=== PATIENT | female | born 1970 | race Caucasian/White ===

== ENCOUNTER 2018-03-10 12:44 | Observation (INO) | payer OTHER ==
[2018-03-10 13:18] LABS: HCG,QUALITATIVE URINE NEGATIVE
[2018-03-10 13:19] LABS: URINE APPEARANCE Clear; URINE BILIRUBIN Negative (NEGATIVE); URINE GLUCOSE (UA) Negative (NEGATIVE); URINE KETONE Negative (NEGATIVE); URINE LEUK ESTERASE Negative (NEGATIVE); URINE NITRITE Negative (NEGATIVE); URINE PROTEIN Negative (NEGATIVE); URINE UROBILINOGEN 0.2 (0.2-1.0)
[2018-03-10] MEDS ORDERED: SODIUM CHLORIDE 1,000 ML IV STA (13:21)
--- NOTE | 2018-03-10 13:21 | PDOC ---
History of Present Illness - General Chief Complaint: Lightheaded Stated Complaint: LIGHTHEADED Time Seen by Provider: 03/10/18 12:47 History Source: Patient Exam Limitations: No Limitations - History of Present Illness Initial Comments: 03/10/18 13:07 48 year old female c/ hx HTN, +heavy smoking history, anxiety/depression p/w lightheaded and chest discomfort. For the last several weeks, the patient has been endorsing worsening exercise tolerance and generalized weakness. Two days ago, pt was working as a [employer], suddenly felt lightheaded, generally weak, and nauseous but no chest pain. [place] like sitting and standing up made symptoms worse. States she felt generally fatigue. Today, she woke up with midsternal chest discomfort that is constant, 2/10. No SOB or radiation. States she feels nauseous. No diaphoresis. No fevers or chills. Reports poor appetite. Denies abdominal pain. Past History - Past Medical History Allergies/Adverse Reactions: Allergies Allergy/AdvReac Type Severity Reaction Status Date / Time ciprofloxacin [From Cipro] Allergy Verified 03/10/18 12:53 ciprofloxacin HCl Allergy Verified 03/10/18 12:53 [From Cipro] Penicillins Allergy Verified 03/10/18 12:53 Home Medications: Ambulatory Orders Levothyroxine [Synthroid -] 75 mcg PO DAILY 02/21/16 Liothyronine Sodium [Cytomel] 50 mcg PO DAILY 02/21/16 Lorazepam [Ativan] 0.5 mg PO HS 02/21/16 Sertraline HCl [Zoloft] 125 mg PO DAILY 03/10/18 COPD: No HTN: Yes Psychiatric Problems: Yes (ANXIETY, DEPRESSION ,PTSD) Thyroid Disease: Yes - Suicide/Smoking/Psychosocial Hx Smoking History: Current every day smoker Have you smoked in the past 12 months: Yes Number of Cigarettes Smoked Daily: 15 Information on smoking cessation initiated: Yes 'Breaking Loose' booklet given: 02/21/16 Hx Alcohol Use: No Drug/Substance Use Hx: No Substance Use Type: None Review of Systems - Review of Systems Able to Perform ROS?: Yes Comments:: 03/10/18 13:27 GENERAL/CONSTITUTIONAL: No fever, weakness. HEAD, EYES, EARS, NOSE AND THROAT: No change in vision. No ear pain or discharge. No sore throat. CARDIOVASCULAR: +chest pain. No shortness of breath. RESPIRATORY: No cough, wheezing, or hemoptysis. GASTROINTESTINAL: No abdominal pain, nausea, vomiting, diarrhea, or decreased PO intolerance. GENITOURINARY: No dysuria, frequency, or change in urination. MUSCULOSKELETAL: No joint or muscle swelling or pain. No neck or back pain. SKIN: No rash NEUROLOGIC: No headache, vertigo, loss of consciousness, or change in strength/ sensation. + lightheadedness ENDOCRINE: No increased thirst. No abnormal weight change. HEMATOLOGIC/LYMPHATIC: No anemia, easy bleeding, or history of blood clots. ALLERGIC/IMMUNOLOGIC: No hives or skin allergy. *Physical Exam - Vital Signs Last Vital Signs Temp Pulse Resp BP Pulse Ox 98.5 F 80 16 136/84 100 03/10/18 12:45 03/10/18 12:45 03/10/18 12:45 03/10/18 12:45 03/10/18 12:45 - Physical Exam Comments: 03/10/18 13:27 GENERAL: Awake, alert, and fully oriented, in no acute distress. HEAD: No signs of trauma EYES: PERRLA, EOMI, sclera anicteric, conjunctiva clear ENT: Auricles normal inspection, hearing grossly normal, nares patent NECK: Normal ROM, supple LUNGS: Breath sounds equal, clear to auscultation bilaterally. No wheezes, and no crackles HEART: Regular rate and rhythm, normal S1 and S2, no murmurs, rubs or gallops ABDOMEN: Soft, nontender No guarding, no rebound. No masses EXTREMITIES: Normal range of motion, no edema. No clubbing or cyanosis. No cords, erythema, or tenderness NEUROLOGICAL: Cranial nerves II through XII grossly intact. Normal speech, normal gait SKIN: Warm, Dry, normal turgor, no rashes or lesions noted. Heart Score/ECG Review - History History: Highly suspicious - Electrocardiogram EKG: Significant ST-depression - Age Age: </= 45 - Risk Factors Risk Factors Heart Score: Yes Hx Hypertension, Yes Smoking History, Yes Hx Obesity Based on the list above the patient has:: >/=3 risk factors or Hx atherosclerotic disease - Troponin Troponin: </= normal limit - Score Heart Score - Total: 6 #1 ECG reviewed & interpreted by me at: 12:50 03/10/18 13:29 NSR 72, 1mm STD V3-V5 but no THIERRY, normal axis, normal intervals, QTC 459 msec ED Treatment Course - LABORATORY CBC & Chemistry Diagram: 03/10/18 13:15 03/10/18 13:15 - RADIOLOGY Radiology Studies Ordered: Category Date Time Status CHEST PA & LAT [RAD] Stat Radiology 03/10/18 13:06 Ordered Medical Decision Making - Medical Decision Making 03/10/18 13:29 Vital Signs Temp Pulse Resp BP Pulse Ox 98.5 F 80 16 136/84 100 03/10/18 12:45 03/10/18 12:45 03/10/18 12:45 03/10/18 12:45 03/10/18 12:45 48 year old female with lightheaded and chest pain with ST depression ECG. This is concerning for NSTEMI / acute coronary syndrome. Will give the patient aspirin. Send troponin, chest xray, labs, consult cardiology, admit. 03/10/18 14:18 CBC, BMP 03/10/18 13:15 03/10/18 13:15 CMP Sodium 133 mmol/L (136-145) L 03/10/18 13:15 Potassium 3.4 mmol/L (3.5-5.1) L 03/10/18 13:15 Chloride 101 mmol/L (98-107) 03/10/18 13:15 Carbon Dioxide 21 mmol/L (22-28) L 03/10/18 13:15 Anion Gap 11 (8-16) 03/10/18 13:15 BUN 11 mg/dl (7-18) 03/10/18 13:15 Creatinine 0.7 mg/dl (0.6-1.3) 03/10/18 13:15 Creat Clearance w eGFR > 60 (>60) 03/10/18 13:15 Random Glucose 87 mg/dl (74-106) 03/10/18 13:15 Calcium 9.3 mg/dl (8.4-10.2) 03/10/18 13:15 Total Bilirubin 0.8 mg/dl (0.2-1.0) 03/10/18 13:15 AST 18 U/L (10-42) 03/10/18 13:15 ALT 15 U/L (10-40) 03/10/18 13:15 Alkaline Phosphatase 55 U/L (32-92) 03/10/18 13:15 Troponin I < 0.03 ng/ml (0.00-0.06) 03/10/18 13:15 Total Protein 7.3 g/dl (6.4-8.3) 03/10/18 13:15 Albumin 4.3 g/dl (3.5-5.0) 03/10/18 13:15 Initial troponin is negative. Case discussed with Dr. Lowe. He will follow patient as medical economics consultant. Will admit patient to the hospital. 03/10/18 14:28 Chest xray reviewed. No acute findings. Case discussed with [facility] hospitalist. Pt admitted to telemetry observation. Case discussed in detail with admitting physician including history, physical exam and ancillary studies. Admitting physician has assumed care for the patient, will follow all pending diagnostics and will complete the evaluation and treatment. *DC/Admit/Observation/Transfer Diagnosis at time of Disposition: Chest pain Qualifiers: Chest pain type: unspecified Qualified Code(s): R07.9 - Chest pain, unspecified - Discharge Dispostion Condition at time of disposition: Stable Admit: Yes - Referrals - Patient Instructions - Post Discharge Activity
[2018-03-10] MEDS ORDERED: ASPIRIN 81 MG CHEWABLE TABLETS PO ONE (13:30)
[2018-03-10 13:32] LABS: BASO % 1.3 % (0-2.0); EOS % 1.1 % (0-4.5); HEMATOCRIT 42.9 % (32.4-45.2); HEMOGLOBIN 14.6 GM/dl (10.7-15.3); LYMPH % 26.9 % (8-40); MEAN CELL VOLUME 88.3 fl (80-96); MEAN PLT VOLUME 8.4 fl (7.5-11.1); MONO % 5.7 % (3.8-10.2); PLATELET COUNT 232 K/MM3 (134-434); RBC 4.86 M/mm3 (3.60-5.2); RDW 11.9 % (11.6-15.6); WHITE BLOOD COUNT 7.5 K/mm3 (4.0-10.8)
[2018-03-10] MEDS ORDERED: ASPIRIN 325 MG TABLET ONE ×2 (13:33→13:34)
[2018-03-10 13:47] LABS: ALBUMIN 4.3 g/dl (3.5-5.0); ALK PHOS 55 U/L (32-92); ANION GAP 11 (8-16); BILIRUBIN,TOTAL 0.8 mg/dl (0.2-1.0); BLOOD UREA NITROGEN 11 mg/dl (7-18); CALCIUM 9.3 mg/dl (8.4-10.2); CHLORIDE 101 mmol/L (98-107); CO2 21 mmol/L (22-28); CREATININE 0.7 mg/dl (0.6-1.3); GLUCOSE,RANDOM 87 mg/dl (74-106); POTASSIUM 3.4 mmol/L (3.5-5.1); SGOT/AST 18 U/L (10-42); SGPT/ALT 15 U/L (10-40); SODIUM 133 mmol/L (136-145); TOT PROT 7.3 g/dl (6.4-8.3)
[2018-03-10 13:49] LABS: URINE COLOR YELLOW
[2018-03-10 13:49] LABS: ACTIVATED PTT 28.8 SECONDS (24.0-38.9)
[2018-03-10 13:53] LABS: INR 1.12 (0.82-1.09); PROTHROMBIN TIME (PATIENT) 12.5 SEC (10.2-13.0)
[2018-03-10] MEDS ORDERED: LORazepam 0.5 MG TABLET PO ONE ×2 (14:13→18:32)
[2018-03-10] MEDS ORDERED: LORazepam 0.5 MG TABLET ONE (14:46)
[2018-03-10] MEDS ORDERED: POTASSIUM CHLORIDE TABS 20 MEQ TABLET.ER (FP) PO ONE ×2 (15:00)
[2018-03-10] MEDS ORDERED: NICOTINE 21 MG/24 HOURS TOPICAL PATCH TD SCH (16:00)
[2018-03-10 16:16] VITALS: BMI 29.5
[2018-03-10] MEDS: NICOTINE 7 MG/24 HOURS TOPICAL PATCH TD SCH (18:04)
[2018-03-10] MEDS ORDERED: LORazepam 0.5 MG TABLET PO SCH (22:00)
--- NOTE | 2018-03-10 22:05 | HP ---
CHIEF COMPLAINT: chest pain PCP: Vanessa Morrow HISTORY OF PRESENT ILLNESS: This is a 48yF with a significant past medical history of HTN, Anxiety who prsented to the ED with episode chest discomfort that started shortly after awakening this am. She also reports a several day history of lightheadedness to the point where she felt as if she had to hold onto something to avoid passing out. She also c/o decreased exercise tolerance and extreme fatigue over the past few weeks but especially last week. She denies palpitations, abdominal pain , N/V. ER course was notable for: (1) Trop neg (2) TWI lead 3, STD V3-V6 Recent Travel: pt denies PAST MEDICAL HISTORY: HTN, anxiety/depression, PTSD, hypothyroid, R breast mass pending workup PAST SURGICAL HISTORY: L breast lumpectomy - benign Social History: Smoking: pt denies Alcohol: pt denies Drugs: pt denies Family History: mother alive with Parkinson's disease and dementia father age 81, CAD, stent in his 70s, PAD brother , suicide, h/o bipolar and borderline personality disorder sister alive and well Allergies ciprofloxacin [From Cipro] Allergy (Verified 03/10/18 12:53) ciprofloxacin HCl [From Cipro] Allergy (Verified 03/10/18 12:53) Penicillins Allergy (Verified 03/10/18 12:53) HOME MEDICATIONS: 3 Medication Instructions Recorded Levothyroxine [Synthroid -] 75 mcg PO DAILY 02/21/16 Liothyronine Sodium [Cytomel] 50 mcg PO DAILY 02/21/16 Lorazepam [Ativan] 0.5 mg PO HS 02/21/16 Brexpiprazole [Rexulti] 1 mg PO DAILY 03/10/18 Sertraline HCl [Zoloft] 125 mg PO DAILY 03/10/18 Triamterene/Hydrochlorothiazid 1 each PO DAILY 03/10/18 [Triamterene-Hctz 37.5-25 mg Tb] REVIEW OF SYSTEMS CONSTITUTIONAL: Absent: fever, chills, diaphoresis, generalized weakness, malaise, loss of appetite, weight change HEENT: Absent: rhinorrhea, nasal congestion, throat pain, throat swelling, difficulty swallowing, mouth swelling, ear pain, eye pain, visual changes CARDIOVASCULAR: Present: chest pain, lightheadedness Absent: syncope, palpitations, irregular heart rate, peripheral edema RESPIRATORY: Absent: cough, shortness of breath, dyspnea with exertion, orthopnea, wheezing, stridor, hemoptysis GASTROINTESTINAL: Absent: abdominal pain, abdominal distension, nausea, vomiting, diarrhea, constipation, melena, hematochezia GENITOURINARY: Absent: dysuria, frequency, urgency, hesitancy, hematuria, flank pain, genital pain MUSCULOSKELETAL: Absent: myalgia, arthralgia, joint swelling, back pain, neck pain SKIN: Absent: rash, itching, pallor HEMATOLOGIC/IMMUNOLOGIC: Absent: easy bleeding, easy bruising, lymphadenopathy, frequent infections ENDOCRINE: Absent: unexplained weight gain, unexplained weight loss, heat intolerance, cold intolerance NEUROLOGIC: Absent: headache, focal weakness or paresthesias, dizziness, unsteady gait, seizure, mental status changes, bladder or bowel incontinence PSYCHIATRIC: Absent: anxiety, depression, suicidal or homicidal ideation, hallucinations. PHYSICAL EXAMINATION Vital Signs - 24 hr 3 03/10/18 03/10/18 03/10/18 12:45 14:32 14:58 Temperature 98.5 F 98.4 F Pulse Rate 80 78 Pulse Rate [ 82 Apical] Respiratory 16 16 18 Rate Blood Pressure 136/84 134/80 Blood Pressure 140/80 [Right Arm] O2 Sat by Pulse 100 98 100 Oximetry (%) GENERAL: Awake, alert, and fully oriented, in no acute distress. HEAD: Normal with no signs of trauma. EYES: Pupils equal, round and reactive to light, extraocular movements intact, sclera anicteric, conjunctiva clear. No lid lag. EARS, NOSE, THROAT: Ears normal, nares patent, oropharynx clear without exudates. Moist mucous membranes. NECK: Normal range of motion, supple without lymphadenopathy, JVD, or masses. LUNGS: Breath sounds equal, clear to auscultation bilaterally. No wheezes, and no crackles. No accessory muscle use. HEART: Regular rate and rhythm, normal S1 and S2 without murmur, rub or gallop. ABDOMEN: Soft, nontender, not distended, normoactive bowel sounds, no guarding, no rebound, no masses. No hepatomegaly or splenomegaly. MUSCULOSKELETAL: Normal range of motion at all joints. No bony deformities or tenderness. No CVA tenderness. UPPER EXTREMITIES: 2+ pulses, warm, well-perfused. No cyanosis. No clubbing. No peripheral edema. LOWER EXTREMITIES: 2+ pulses, warm, well-perfused. No calf tenderness. No peripheral edema. NEUROLOGICAL: Cranial nerves II-XII intact. Normal speech. Normal gait. PSYCHIATRIC: Cooperative. Good eye contact. Appropriate mood and affect. SKIN: Warm, dry, normal turgor, no rashes or lesions noted, normal capillary refill. Laboratory Results - last 24 hr 3 03/10/18 03/10/18 03/10/18 12:50 13:15 13:15 WBC 7.5 RBC 4.86 Hgb 14.6 Hct 42.9 MCV 88.3 MCH 30.0 MCHC 34.0 RDW 11.9 Plt Count 232 MPV 8.4 Neutrophils % 65.0 Lymphocytes % 26.9 Monocytes % 5.7 Eosinophils % 1.1 Basophils % 1.3 PT with INR 12.5 INR 1.12 PTT (Actin FS) 28.8 Sodium Potassium Chloride Carbon Dioxide Anion Gap BUN Creatinine Creat Clearance w eGFR Random Glucose Calcium Total Bilirubin AST ALT Alkaline Phosphatase Troponin I Total Protein Albumin Urine Color Yellow Urine Appearance Clear Urine pH 6.0 Ur Specific [place] <= 1.005 Urine Protein Negative Urine Glucose (UA) Negative Urine Ketones Negative Urine Blood Negative Urine Nitrite Negative Urine Bilirubin Negative Urine Urobilinogen 0.2 Ur Leukocyte Esterase Negative Urine HCG, Qual Negative 3 03/10/18 03/10/18 03/10/18 13:15 13:15 18:00 WBC RBC Hgb Hct MCV MCH MCHC RDW Plt Count MPV Neutrophils % Lymphocytes % Monocytes % Eosinophils % Basophils % PT with INR INR PTT (Actin FS) Sodium 133 L Potassium 3.4 L Chloride 101 Carbon Dioxide 21 L Anion Gap 11 BUN 11 Creatinine 0.7 Creat Clearance w eGFR > 60 Random Glucose 87 Calcium 9.3 Total Bilirubin 0.8 AST 18 ALT 15 Alkaline Phosphatase 55 Troponin I < 0.03 < 0.03 Total Protein 7.3 Albumin 4.3 Urine Color Urine Appearance Urine pH Ur Specific [place] Urine Protein Urine Glucose (UA) Urine Ketones Urine Blood Urine Nitrite Urine Bilirubin Urine Urobilinogen Ur Leukocyte Esterase Urine HCG, Qual ECG Normal sinus rhythma vent rate 72, QTC 459 TWI lead 3 STD V3-V6 Radiology Reports Chest PA&lat IMPRESSION: Normal chest. Reported By: Gilmer Correa MD 03/10/18 [id number] ASSESSMENT/PLAN: 48yF with PMH HTN, anxiety/depression, PTSD, hypothyroid, R breast mass pending workup presented to the ED with chest discomfort, lightheadedness, fatigue and decreased exercise tolerance. chest pain - trop neg x 2, trend x 1 more - cardiology consult - ASA given in ED hypokalemia - supplemented with 40mEq po in ed, repeat BMP in AM HTN - cont home meds anxiety/depression - cont home meds hypothyroid - cont home meds - check TSH DVT PPX - heparin deferred, anticipated LOS <48h FEN - tolerating po - BMP in am - low sodium diet as tolerated Dispo: pt currently requires further observation for management of her emergent condition. Visit type - Emergency Visit Emergency Visit: Yes ED Registration Date: 03/10/18 Care time: The patient presented to the Emergency Department on the above date and was hospitalized for further evaluation of their emergent condition. - New Patient This patient is new to me today: Yes Date on this admission: 03/10/18 - Critical Care Critical Care patient: No Hospitalist Screening - Colonoscopy Questionnaire Colonoscopy Questionnaire: Colonoscopy Questionnaire - Patient: 50 - 75 years old and never had a screening colonoscopy: No History of colon or rectal polyps, or CA: No History of IBD, Crohn's disease or UC: No History of abdominal radiation therapy as a child: No - Relative: 1 with colon or rectal CA, or polyps at age 60 or younger: No Colon or rectal CA diagnosed at age 45 or younger: No Multiple relatives with colon or rectal CA: No - Outcome: Screening Result: Negative Screen
[2018-03-11] MEDS ORDERED: LIOTHYRONINE SODIUM 25 MCG TABLET PO SCH (07:00)
[2018-03-11] MEDS ORDERED: LEVOTHYROXINE NA 75 MCG TABLET (FP) PO SCH (07:00)
[2018-03-11 08:07] LABS: BASO % 0.5 % (0-2.0); EOS % 3.1 % (0-4.5); HEMATOCRIT 38.3 % (32.4-45.2); HEMOGLOBIN 13.3 GM/dl (10.7-15.3); LYMPH % 36.3 % (8-40); MCHC 34.7 g/dl (32.0-36.0); MEAN CELL VOLUME 89.5 fl (80-96); MEAN PLT VOLUME 8.5 fl (7.5-11.1); MONO % 7.3 % (3.8-10.2); NEUT % 52.8 % (42.8-82.8); PLATELET COUNT 208 K/MM3 (134-434); RBC 4.27 M/mm3 (3.60-5.2); RDW 12.2 % (11.6-15.6)
--- NOTE | 2018-03-11 08:19 | PN ---
Physical Exam: SUBJECTIVE: Patient seen and examined, denies any chest pain or shortness of breath. OBJECTIVE: Patient is a 48 y/o female with a past medical history of hypertension, hyperlipidemia, DM, anxiety/depression. Patient was admitted from the emergency department to observation for chest pain r/o acs. Vital Signs Period Temp Pulse Resp BP Sys/Dobson Pulse Ox Last 24 Hr 97.9 F-98.5 F 50-82 16-18 102-140/54-84 98-100 GENERAL: The patient is awake, alert, and fully oriented, in no acute distress. HEAD: Normal with no signs of trauma. EYES: PERRL, extraocular movements intact, sclera anicteric, conjunctiva clear. No ptosis. ENT: Ears normal, nares patent, oropharynx clear without exudates, moist mucous membranes. NECK: Trachea midline, full range of motion, supple. LUNGS: Breath sounds equal, clear to auscultation bilaterally, no wheezes, no crackles, no accessory muscle use. HEART: Regular rate and rhythm, S1, S2 without murmur, rub or gallop. ABDOMEN: Soft, nontender, nondistended, normoactive bowel sounds, no guarding, no rebound, no hepatosplenomegaly, no masses. EXTREMITIES: 2+ pulses, warm, well-perfused, no edema. NEUROLOGICAL: Cranial nerves II through XII grossly intact. Normal speech, gait not observed. PSYCH: Normal mood, normal affect. SKIN: Warm, dry, normal turgor, no rashes or lesions noted Laboratory Results - last 24 hr 03/10/18 03/10/18 03/10/18 12:50 13:15 13:15 WBC 7.5 RBC 4.86 Hgb 14.6 Hct 42.9 MCV 88.3 MCH 30.0 MCHC 34.0 RDW 11.9 Plt Count 232 MPV 8.4 Neutrophils % 65.0 Lymphocytes % 26.9 Monocytes % 5.7 Eosinophils % 1.1 Basophils % 1.3 PT with INR 12.5 INR 1.12 PTT (Actin FS) 28.8 Sodium Potassium Chloride Carbon Dioxide Anion Gap BUN Creatinine Creat Clearance w eGFR Random Glucose Calcium Total Bilirubin AST ALT Alkaline Phosphatase Troponin I Total Protein Albumin Urine Color Yellow Urine Appearance Clear Urine pH 6.0 Ur Specific [place] <= 1.005 Urine Protein Negative Urine Glucose (UA) Negative Urine Ketones Negative Urine Blood Negative Urine Nitrite Negative Urine Bilirubin Negative Urine Urobilinogen 0.2 Ur Leukocyte Esterase Negative Urine HCG, Qual Negative 03/10/18 03/10/18 03/10/18 13:15 13:15 18:00 WBC RBC Hgb Hct MCV MCH MCHC RDW Plt Count MPV Neutrophils % Lymphocytes % Monocytes % Eosinophils % Basophils % PT with INR INR PTT (Actin FS) Sodium 133 L Potassium 3.4 L Chloride 101 Carbon Dioxide 21 L Anion Gap 11 BUN 11 Creatinine 0.7 Creat Clearance w eGFR > 60 Random Glucose 87 Calcium 9.3 Total Bilirubin 0.8 AST 18 ALT 15 Alkaline Phosphatase 55 Troponin I < 0.03 < 0.03 Total Protein 7.3 Albumin 4.3 Urine Color Urine Appearance Urine pH Ur Specific [place] Urine Protein Urine Glucose (UA) Urine Ketones Urine Blood Urine Nitrite Urine Bilirubin Urine Urobilinogen Ur Leukocyte Esterase Urine HCG, Qual 03/10/18 03/11/18 23:25 07:10 WBC 6.0 RBC 4.27 Hgb 13.3 Hct 38.3 MCV 89.5 MCH 31.0 MCHC 34.7 RDW 12.2 Plt Count 208 MPV 8.5 Neutrophils % 52.8 Lymphocytes % 36.3 Monocytes % 7.3 Eosinophils % 3.1 Basophils % 0.5 PT with INR INR PTT (Actin FS) Sodium Potassium Chloride Carbon Dioxide Anion Gap BUN Creatinine Creat Clearance w eGFR Random Glucose Calcium Total Bilirubin AST ALT Alkaline Phosphatase Troponin I < 0.03 Total Protein Albumin Urine Color Urine Appearance Urine pH Ur Specific [place] Urine Protein Urine Glucose (UA) Urine Ketones Urine Blood Urine Nitrite Urine Bilirubin Urine Urobilinogen Ur Leukocyte Esterase Urine HCG, Qual Laboratory Tests 03/10/18 03/10/18 03/10/18 13:15 18:00 23:25 Troponin I < 0.03 < 0.03 < 0.03 Active Medications Generic Name Dose Route Start Last Admin Trade Name Freq PRN Reason Stop Dose Admin Aspirin 81 mg 03/11/18 10:00 Ecotrin - PO DAILY ISAÍAS Levothyroxine Sodium 75 mcg 03/11/18 07:00 03/11/18 06:27 Synthroid - PO 75 mcg DAILY@0700 ISAÍAS Administration Liothyronine Sodium 50 mcg 03/11/18 07:00 03/11/18 06:29 Cytomel - PO 50 mcg ACBK ISAÍAS Administration Lorazepam 0.5 mg 03/10/18 22:00 03/11/18 00:09 Ativan - PO Not Given HS ISAÍAS Nicotine 7 mg 03/10/18 16:30 03/10/18 18:04 Nicoderm Patch - TD 7 mg DAILY ISAÍAS Administration Non-Formulary Medication 1 mg 03/11/18 10:00 Brexpiprazole [Rexulti] PO DAILY ISAÍAS Sertraline HCl 125 mg 03/11/18 10:00 Zoloft - PO DAILY ISAÍAS Triamterene/HCTZ 1 cap 03/11/18 10:00 Dyazide 25/37.5mg PO DAILY ISAÍAS ECG Normal sinus rhythmn vent rate 72, QTC 459 TWI lead 3 STD V3-V6 chest xray: normal chest ASSESSMENT/PLAN: 1) cardiovascular chest pain r/o acs - troponin x 3 wnl, no events noted on telemetry monitoring - pt reports chest discomfort upon exertion, for the past 3 days that resolved upon arrival to the ED, patient is pending stress echo today - continue daily ASA - Dr Santizo, cardiology consulted and following hypertension - continue triamterene/hctz, b/p at goal hyperlipidemia - no home meds as per patient, lipid profile noted, start lipitor 2) endo hypothyroidism - tsh wnl, continue synthroid DM - elevated hgb a1c, diet controlled as per patient 3) psych anxiety/depression - continue home medications DVT PPX - heparin deferred, anticipated LOS <48h FEN - tolerating po - BMP in am - low sodium diet as tolerated Dispo: pt currently requires further observation for management of her emergent condition. Visit type - Emergency Visit Emergency Visit: Yes ED Registration Date: 03/10/18 Care time: The patient presented to the Emergency Department on the above date and was hospitalized for further evaluation of their emergent condition. - New Patient This patient is new to me today: Yes Date on this admission: 03/11/18 - Critical Care Critical Care patient: No - Discharge Referral Referred to [facility] Med P.C.: No
--- NOTE | 2018-03-11 09:24 | CON.CARD ---
Consult Consult Specialty:: Cardiology Referred by:: Hospitalist Reason for Consultation:: Cardiac evaluation - History of Present Illness Chief Complaint: Chest pain History of Present Illness: Patient is a 48 year old female with underlying history of hypertension, hypothyroidism and anxiety disorder who presents with lightheadedness for several days and then experienced mid sternal chest discomfort. She still has some residual chest discomfort without radiation. She denies shortness of breath or palpitations. She denies paroxysmal nocturnal dyspnea or orthopnea. She denies nausea, vomiting, diarrhea or abdominal pain. She denies fever or chills. She denies headache. Cardiology consultation was called for further evaluation. - History Source History Provided By: Patient, Medical Record Limitations to Obtaining History: No Limitations - Past Medical History Cardio/Vascular: Yes: HTN Psych: Yes: Anxiety Endocrine: Yes: Hypothyroidism - Past Surgical History Additional Surgical History: Breast biopsy - Alcohol/Substance Use Hx Alcohol Use: No History of Substance Use: reports: None - Smoking History Smoking history: Current every day smoker Have you smoked in the past 12 months: Yes Aproximately how many cigarettes per day: 15 Home Medications - Allergies Allergies/Adverse Reactions: Allergies Allergy/AdvReac Type Severity Reaction Status Date / Time ciprofloxacin [From Cipro] Allergy Verified 03/10/18 12:53 ciprofloxacin HCl Allergy Verified 03/10/18 12:53 [From Cipro] Penicillins Allergy Verified 03/10/18 12:53 - Home Medications Home Medications: Ambulatory Orders Levothyroxine [Synthroid -] 75 mcg PO DAILY 02/21/16 Liothyronine Sodium [Cytomel] 50 mcg PO DAILY 02/21/16 Lorazepam [Ativan] 0.5 mg PO HS 02/21/16 Brexpiprazole [Rexulti] 1 mg PO DAILY 03/10/18 Sertraline HCl [Zoloft] 125 mg PO DAILY 03/10/18 Triamterene/Hydrochlorothiazid [Triamterene-Hctz 37.5-25 mg Tb] 1 each PO DAILY 03/10/18 Family Disease History - Family Disease History Other Family History: History of HTN Review of Systems - Review of Systems Constitutional: denies: Chills, Fever Cardiovascular: reports: Chest Pain. denies: Palpitations, Shortness of Breath Respiratory: denies: Cough, Hemoptysis, Orthopnea, PND, SOB, SOB on Exertion, Wheezing Gastrointestinal: denies: Abdominal Pain, Constipation, Diarrhea, Nausea, Rectal Bleeding, Vomiting, Vomiting Blood Genitourinary: denies: Dysuria, Hematuria Musculoskeletal: denies: Joint Pain Neurological: reports: Dizziness. denies: Headache, Seizure, Syncope Endocrine: denies: Intolerance to Cold, Intolerance to Heat, Unexplained Weight Gain, Unexplained Weight Loss Psychiatric: reports: Anxiety Vital Signs: Vital Signs Temperature 97.9 F 03/11/18 06:00 Pulse Rate 50 L 03/11/18 06:00 Respiratory Rate 03/11/18 06:00 Blood Pressure 102/54 03/11/18 06:00 O2 Sat by Pulse Oximetry (%) 100 03/11/18 06:00 Constitutional: Yes: Well Nourished Eyes: Yes: PERRL HENT: Yes: Atraumatic Neck: Yes: Supple Respiratory: Yes: Regular, CTA Bilaterally Gastrointestinal: Yes: Normal Bowel Sounds, Soft. No: Tenderness Cardiovascular: Yes: Regular Rate and Rhythm JVD: No Carotid Bruit: No PMI: Non-Displaced Heart Sounds: Yes: S1, S2. No: Gallop Murmur: No: Systolic Murmur, Diastolic Murmur Edema: No - Other Data Labs, Other Data: CBC, BMP 03/11/18 07:10 INR, PTT INR 1.12 (0.82-1.09) 03/10/18 13:15 Troponin, BNP 03/10/18 03/10/18 03/10/18 13:15 18:00 23:25 Troponin I < 0.03 < 0.03 < 0.03 Laboratory Results - last 24 hr 03/10/18 03/10/18 03/10/18 12:50 13:15 13:15 WBC 7.5 RBC 4.86 Hgb 14.6 Hct 42.9 MCV 88.3 MCH 30.0 MCHC 34.0 RDW 11.9 Plt Count 232 MPV 8.4 Neutrophils % 65.0 Lymphocytes % 26.9 Monocytes % 5.7 Eosinophils % 1.1 Basophils % 1.3 PT with INR 12.5 INR 1.12 PTT (Actin FS) 28.8 Sodium Potassium Chloride Carbon Dioxide Anion Gap BUN Creatinine Creat Clearance w eGFR Random Glucose Calcium Total Bilirubin AST ALT Alkaline Phosphatase Troponin I Total Protein Albumin Urine Color Yellow Urine Appearance Clear Urine pH 6.0 Ur Specific [place] <= 1.005 Urine Protein Negative Urine Glucose (UA) Negative Urine Ketones Negative Urine Blood Negative Urine Nitrite Negative Urine Bilirubin Negative Urine Urobilinogen 0.2 Ur Leukocyte Esterase Negative Urine HCG, Qual Negative 03/10/18 03/10/18 03/10/18 13:15 13:15 18:00 WBC RBC Hgb Hct MCV MCH MCHC RDW Plt Count MPV Neutrophils % Lymphocytes % Monocytes % Eosinophils % Basophils % PT with INR INR PTT (Actin FS) Sodium 133 L Potassium 3.4 L Chloride 101 Carbon Dioxide 21 L Anion Gap 11 BUN 11 Creatinine 0.7 Creat Clearance w eGFR > 60 Random Glucose 87 Calcium 9.3 Total Bilirubin 0.8 AST 18 ALT 15 Alkaline Phosphatase 55 Troponin I < 0.03 < 0.03 Total Protein 7.3 Albumin 4.3 Urine Color Urine Appearance Urine pH Ur Specific [place] Urine Protein Urine Glucose (UA) Urine Ketones Urine Blood Urine Nitrite Urine Bilirubin Urine Urobilinogen Ur Leukocyte Esterase Urine HCG, Qual 03/10/18 03/11/18 23:25 07:10 WBC 6.0 RBC 4.27 Hgb 13.3 Hct 38.3 MCV 89.5 MCH 31.0 MCHC 34.7 RDW 12.2 Plt Count 208 MPV 8.5 Neutrophils % 52.8 Lymphocytes % 36.3 Monocytes % 7.3 Eosinophils % 3.1 Basophils % 0.5 PT with INR INR PTT (Actin FS) Sodium Potassium Chloride Carbon Dioxide Anion Gap BUN Creatinine Creat Clearance w eGFR Random Glucose Calcium Total Bilirubin AST ALT Alkaline Phosphatase Troponin I < 0.03 Total Protein Albumin Urine Color Urine Appearance Urine pH Ur Specific [place] Urine Protein Urine Glucose (UA) Urine Ketones Urine Blood Urine Nitrite Urine Bilirubin Urine Urobilinogen Ur Leukocyte Esterase Urine HCG, Qual Sinus bradycardia, nonspecific ST-T abnormality Imaging - Results Chest X-ray: Report Reviewed (Unremarkable) EKG: Report Reviewed Problem List - Problems (1) HTN (hypertension) Code(s): I10 - ESSENTIAL (PRIMARY) HYPERTENSION Qualifiers: Hypertension type: essential hypertension Qualified Code(s): I10 - Essential (primary) hypertension (2) Hypothyroidism Code(s): E03.9 - HYPOTHYROIDISM, UNSPECIFIED Qualifiers: Hypothyroidism type: unspecified Qualified Code(s): E03.9 - Hypothyroidism , unspecified (3) Anxiety Code(s): F41.9 - ANXIETY DISORDER, UNSPECIFIED (4) Chest pain Code(s): R07.9 - CHEST PAIN, UNSPECIFIED Qualifiers: Chest pain type: unspecified Qualified Code(s): R07.9 - Chest pain, unspecified Assessment/Plan 1. Chest pain syndrome, atypical 2. Hypertension 3. Hypothyroidism 4. Anxiety PLAN: 1. Continue current medical therapy. Troponins negative for PR 2. Further work up - suggested stress echocardiography to rule out structural heart disease and exercise tolerance and ischemia. This can be done this afternoon at [facility]. Other option is to do it as outpatient, but patient decides to do it inpatient 3. Anxiety management 4. Smoking cessation recommended Further plans are to follow Channing Santizo MD
--- NOTE | 2018-03-11 09:56 | EKG ---
Test Reason : Blood Pressure : / mmHG Vent. Rate : 072 BPM Atrial Rate : 072 BPM P-R Int : 114 ms QRS Dur : 092 ms QT Int : 420 ms P-R-T Axes : 046 049 038 degrees QTc Int : 459 ms NORMAL SINUS RHYTHM NONSPECIFIC ST ABNORMALITY ABNORMAL ECG NO PREVIOUS ECGS AVAILABLE Confirmed by MD Myles, Brodie ([id number]) on 03/11/2018 9:56:29 AM Referred By: MARCELO Confirmed By:Brodie Bueno MD
[2018-03-11] MEDS ORDERED: ASPIRIN COATED 81 MG TABLET.EC PO SCH (10:00)
[2018-03-11] MEDS ORDERED: SERTRALINE HCL 50 MG TABLET (FP) PO SCH (10:00)
[2018-03-11] MEDS ORDERED: LIOTHYRONINE SODIUM 50 MCG PO SCH (10:00)
[2018-03-11] MEDS ORDERED: BREXPIPRAZOLE 1 MG PO SCH (10:00)
[2018-03-11] MEDS ORDERED: TRIAMTERENE AND HCTZ - 37.5 MG/25 MG CAPSULE PO SCH (10:00)
[2018-03-11] MEDS: NICOTINE 7 MG/24 HOURS TOPICAL PATCH TD SCH (10:19)
[2018-03-11 12:38] LABS: ALBUMIN 3.6 g/dl (3.5-5.0); ALK PHOS 46 U/L (32-92); ANION GAP 6 (8-16); BILIRUBIN,TOTAL 0.5 mg/dl (0.2-1.0); BLOOD UREA NITROGEN 17 mg/dl (7-18); CALCIUM 8.6 mg/dl (8.4-10.2); CHLORIDE 106 mmol/L (98-107); CHOLESTEROL 229 mg/dl; CO2 23 mmol/L (22-28); CREATININE 0.8 mg/dl (0.6-1.3); GLUCOSE,RANDOM 98 mg/dl (74-106); HDL CHOLESTEROL 27 mg/dl (29-89); SGOT/AST 15 U/L (10-42); SGPT/ALT 13 U/L (10-40); SODIUM 135 mmol/L (136-145); TOT PROT 6.3 g/dl (6.4-8.3); TRIGLYCERIDES 159 mg/dl (35-160)
[2018-03-11 15:07] VITALS: BP 100/52; PULSE 76; TEMP 97.8
[2018-03-11] MEDS ORDERED: ATORVASTATIN CA 10 MG TABLET (FP) PO SCH (22:00)
--- NOTE | 2018-03-12 13:01 | DS ---
Physical Exam: SUBJECTIVE: Patient seen and examined, reports feeling well, denies any chest pain or shortness of breath, patient is ambulatory at bedside, denies any dyspnea upon exertion. OBJECTIVE: Patient is a 48yF with a significant past medical history of HTN, Anxiety who prsented to the ED with episode chest discomfort that started shortly after awakening this am. She also reports a several day history of lightheadedness to the point where she felt as if she had to hold onto something to avoid passing out. She also c/o decreased exercise tolerance and extreme fatigue over the past few weeks but especially last week. She denies palpitations, abdominal pain, N/V. ER course was notable for: (1) Trop neg (2) TWI lead 3, STD V3-V6 Vital Signs Period Temp Pulse Resp BP Sys/Dobson Pulse Ox Last 24 Hr 97.8 F 76 18 100/52 PHYSICAL EXAM GENERAL: The patient is awake, alert, and fully oriented, in no acute distress. HEAD: Normal with no signs of trauma. EYES: PERRL, extraocular movements intact, sclera anicteric, conjunctiva clear. ENT: Ears normal, nares patent, oropharynx clear without exudates, moist mucous membranes. NECK: Trachea midline, full range of motion, supple. LUNGS: Breath sounds equal, clear to auscultation bilaterally, no wheezes, no crackles, no accessory muscle use. HEART: Regular rate and rhythm, S1, S2 without murmur, rub or gallop. ABDOMEN: Soft, nontender, nondistended, normoactive bowel sounds, no guarding, no rebound, no hepatosplenomegaly, no masses. EXTREMITIES: 2+ pulses, warm, well-perfused, no edema. NEUROLOGICAL: Cranial nerves II through XII grossly intact. Normal speech, gait not observed. PSYCH: Normal mood, normal affect. SKIN: Warm, dry, normal turgor, no rashes or lesions noted. LABS CBC WBC 6.0 K/mm3 (4.0-10.8) 03/11/18 07:10 RBC 4.27 M/mm3 (3.60-5.2) 03/11/18 07:10 Hgb 13.3 GM/dl (10.7-15.3) 03/11/18 07:10 Hct 38.3 % (32.4-45.2) 03/11/18 07:10 MCV 89.5 fl (80-96) 03/11/18 07:10 MCH 31.0 pg (25.7-33.7) 03/11/18 07:10 MCHC 34.7 g/dl (32.0-36.0) 03/11/18 07:10 RDW 12.2 % (11.6-15.6) 03/11/18 07:10 Plt Count 208 K/MM3 (134-434) 03/11/18 07:10 MPV 8.5 fl (7.5-11.1) 03/11/18 07:10 Neutrophils % 52.8 % (42.8-82.8) 03/11/18 07:10 Lymphocytes % 36.3 % (8-40) 03/11/18 07:10 Monocytes % 7.3 % (3.8-10.2) 03/11/18 07:10 Eosinophils % 3.1 % (0-4.5) 03/11/18 07:10 Basophils % 0.5 % (0-2.0) 03/11/18 07:10 CMP Sodium 135 mmol/L (136-145) L 03/11/18 07:10 Potassium 4.0 mmol/L (3.5-5.1) 03/11/18 07:10 Chloride 106 mmol/L (98-107) 03/11/18 07:10 Carbon Dioxide 23 mmol/L (22-28) 03/11/18 07:10 Anion Gap 6 (8-16) L 03/11/18 07:10 BUN 17 mg/dl (7-18) D 03/11/18 07:10 Creatinine 0.8 mg/dl (0.6-1.3) 03/11/18 07:10 Creat Clearance w eGFR > 60 (>60) 03/11/18 07:10 Random Glucose 98 mg/dl (74-106) 03/11/18 07:10 Hemoglobin A1c % 6.8 % (4.8-6.0) H 03/11/18 07:10 Calcium 8.6 mg/dl (8.4-10.2) 03/11/18 07:10 Magnesium 2.0 mg/dL (1.8-2.4) 03/11/18 07:10 Total Bilirubin 0.5 mg/dl (0.2-1.0) D 03/11/18 07:10 AST 15 U/L (10-42) 03/11/18 07:10 ALT 13 U/L (10-40) 03/11/18 07:10 Alkaline Phosphatase 46 U/L (32-92) 03/11/18 07:10 Troponin I < 0.03 ng/ml (0.00-0.06) 03/10/18 23:25 Total Protein 6.3 g/dl (6.4-8.3) L 03/11/18 07:10 Albumin 3.6 g/dl (3.5-5.0) 03/11/18 07:10 Triglycerides 159 mg/dl (35-160) 03/11/18 07:10 Cholesterol 229 mg/dl 03/11/18 07:10 Total LDL Cholesterol 170 mg/dL (5-100) H 03/11/18 07:10 HDL Cholesterol 27 mg/dl (29-89) L 03/11/18 07:10 TSH 1.95 uIU/ml (0.358-3.74) 03/11/18 07:10 Laboratory Tests 03/10/18 03/10/18 03/10/18 13:15 18:00 23:25 Troponin I < 0.03 < 0.03 < 0.03 HOSPITAL COURSE: 1) cardiovascular chest pain r/o acs - troponin x 3 wnl, no events noted on telemetry monitoring - stress echo no ischemia noted - daily ASA - Dr Santizo, cardiology consulted and followed hypertension - continue triamterene/hctz, b/p at goal hyperlipidemia - no home meds as per patient, lipid profile noted, start lipitor 2) endo hypothyroidism - tsh wnl, continue synthroid DM - elevated hgb a1c, diet controlled as per patient, will require outpatient follow up 3) psych anxiety/depression - continue home medications Date of Admission:03/10/18 Date of Discharge: 03/12/18 Minutes to complete discharge: 45 Discharge Summary Reason For Visit: CHEST PAIN Condition: Stable - Instructions Diet, Activity, Other Instructions: continue all medications as prescribed ASA and lipitor was added to your medication regimen, your lipid profile was noted to be elevated during this admission please follow up with your primary care physician in regards to your hemoglobin a1c if any new or persistent symptoms develop please return to the emergency department Referrals: Ada Jaeger MD [Non Staff, Medical] - Channing Santizo MD [Staff Physician] - Disposition: HOME - Home Medications Comprehensive Discharge Medication List: Ambulatory Orders Levothyroxine [Synthroid -] 75 mcg PO DAILY 02/21/16 Liothyronine Sodium [Cytomel] 50 mcg PO DAILY 02/21/16 Lorazepam [Ativan] 0.5 mg PO HS 02/21/16 Brexpiprazole [Rexulti] 1 mg PO DAILY 03/10/18 Sertraline HCl [Zoloft] 125 mg PO DAILY 03/10/18 Triamterene/Hydrochlorothiazid [Triamterene-Hctz 37.5-25 mg Tb] 1 each PO DAILY 03/10/18 Aspirin Coated [Ecotrin -] 81 mg PO DAILY tablet.ec 03/11/18 Atorvastatin Ca [Lipitor] 10 mg PO HS #30 tablet 03/11/18 This patient is new to me today: No Emergency Visit: Yes ED Registration Date: 03/10/18 Care time: The patient presented to the Emergency Department on the above date and was hospitalized for further evaluation of their emergent condition. Critical Care patient: No - Discharge Referral Referred to [facility] No
--- NOTE | 2018-03-13 11:45 | EKG ---
Test Reason : Blood Pressure : / mmHG Vent. Rate : 049 BPM Atrial Rate : 049 BPM P-R Int : 138 ms QRS Dur : 094 ms QT Int : 472 ms P-R-T Axes : 052 063 065 degrees QTc Int : 426 ms SINUS BRADYCARDIA WITH PREMATURE ATRIAL COMPLEXES OTHERWISE NORMAL ECG WHEN COMPARED WITH ECG OF 10-MAR-2018 12:50, PREMATURE ATRIAL COMPLEXES ARE NOW PRESENT Confirmed by SELVIN JAQUEZ, EWELINA ([id number]) on 03/13/2018 11:45:28 AM Referred By: HEATH MATSON Confirmed By:EWELINA MONTALVO MD
== END 2018-03-11 17:20 | disposition home or self-care (01) ==
LOC: FER 12:44 → FM/S 14:58
PROVIDERS: ADMIT Internal Medicine; ATTEND Nurse Practitioner Family
PROC: 3E0337Z Introduction of Electrolytic and Water Balance Substance into Peripheral Vein, Percutaneous Approach (ICD-10-PCS; principal; 2018-03-10)
DX: R07.9 Chest pain, unspecified (principal); E87.6 Hypokalemia; I10 Essential (primary) hypertension; F41.8 Other specified anxiety disorders; E03.9 Hypothyroidism, unspecified; Z88.0 Allergy status to penicillin; Z88.1 Allergy status to other antibiotic agents; R00.1 Bradycardia, unspecified
CPT/HCPCS: 36415; 71046-TC-FY; 80053; 80061; 81003; 82550; 83036; 83721; 83735; 84443; 84484; 84703; 85025; 85610; 85730; 93005; 93351; 96360; 99284-25; G0378; J7030

== ENCOUNTER 2023-07-13 11:55 | Emergency (ER) | payer OTHER ==
[2023-07-13 12:30] VITALS: BMI 28.0
[2023-07-13] MEDS ORDERED: ACETAMINOPHEN 325 MG TABLET (FP) PO ONE (13:18)
[2023-07-13 13:19] VITALS: BP 155/100; PULSE 94; RESP 18; TEMP 100.5
[2023-07-13] MEDS ORDERED: ACETAMINOPHEN 325 MG TABLET (FP) ONE (13:22)
== END 2023-07-13 13:34 | disposition home or self-care (01) ==
LOC: FER 11:55
DX: S61.451A Open bite of right hand, initial encounter (principal); S61.551A Open bite of right wrist, initial encounter; S50.311A Abrasion of right elbow, initial encounter; W55.01XA Bitten by cat, initial encounter
CPT/HCPCS: 73130-TC-LT-FY; 73130-TC-RT-FY; 99284-25